=== PATIENT | female | born 1975 | race Caucasian/White ===

== ENCOUNTER 2016-12-20 18:56 | Emergency (ER) | payer OTHER ==
[~2016-12-20] VITALS: Ht 162.6 cm; Wt 118.0 kg
[2016-12-20] MEDS ORDERED: NAPROXEN500 MG PO (21:38)
[2016-12-20] MEDS ORDERED: SKELAXIN800 MG PO (21:38)
[2016-12-20 21:54] VITALS: BP 147/92
== END 2016-12-20 21:55 | disposition home or self-care (01) ==
LOC: EME 18:56 → EXP 18:56
DX: S39.012A Strain of muscle, fascia and tendon of lower back, initial encounter (principal); R51 Headache; W01.198A Fall on same level from slipping, tripping and stumbling with subsequent striking against other object, initial encounter; Y93.E1 Activity, personal bathing and showering; Y92.002 Bathroom of unspecified non-institutional (private) residence as the place of occurrence of the external cause; I10 Essential (primary) hypertension; E78.5 Hyperlipidemia, unspecified; E11.9 Type 2 diabetes mellitus without complications; Z72.0 Tobacco use
CPT/HCPCS: 72100; 99281; 99284; J1885

== ENCOUNTER → 2017-06-08 | Outpatient (CLI) | payer OTHER ==
[~2017-06-08] MED LIST: NAPROXEN500 MG PO; SKELAXIN800 MG PO
== END | disposition home or self-care (01) ==
LOC: NUC 05-25 08:30
DX: R11.2 Nausea with vomiting, unspecified (principal); R19.7 Diarrhea, unspecified; R14.0 Abdominal distension (gaseous); K76.0 Fatty (change of) liver, not elsewhere classified
CPT/HCPCS: 78264; A9541